=== PATIENT | female | born 1940 | race Caucasian/White ===

== ENCOUNTER 2016-12-22 22:37 | Emergency (ER) | payer MEDICARE, OTHER ==
--- NOTE | ~2016-12-22 | CT71 ---
[facility] A Service of [facility] RADIOLOGY TEXT RESULTS PATIENT: MIKAELA CASTLE LOCATION: [facility] : 40 UNIT #: [id number] AGE: [address]: Amanda Vasquez MD SEX: F ORDER DR: [id number] [facility] [address] [place], [place] [address] [id number] E MR#: [id number] Acc #: [id number] NAME: MIKAELA CASTLE : 1940 SEX: F STUDY DATE/TIME: 12/22/2016 22:29 UNIT: [facility] ROOM: STUDY DESCRIPTION: CT Head Wo Contrast Attending Physician: Amanda Vasquez M.D. Ordering Physician: Amanda Vaqsuez M.D. Primary Care Physician: Nasir Osorio M.D. MEDICAL IMAGING REPORT This report is preliminary unless electronic signature is present EXAM Head CT without contrast, 12/22/2016 HISTORY Headaches and dizziness and generalized weakness beginning today, diabetes and hypertension. This CT exam was performed with one or more of the following radiation dose reduction techniques: automatic exposure control, adjustment of mA and/or kV according to patient size, and iterative reconstruction. FINDINGS Multiple axial images were obtained from the skull base to vertex without intravenous contrast administration. There is generalized enlargement of ventricles and sulci characteristic of atrophy and there is periventricular microvascular white matter ischemic change. 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 Aneurysm clip or coils noted in the medial left temporal region. There is no midline shift. There is no mass or mass effect, hemorrhage or acute infarct. The visualized paranasal sinuses are clear. IMPRESSION No acute intracranial abnormality. Dictated by... Caleb Chaparro M.D. THIS IS AN ELECTRONICALLY VERIFIED REPORT Caleb Chaparro M.D. at 12/23/2016 2:29 PM RENALDO/anibal [facility] A Service of [facility] RADIOLOGY TEXT RESULTS PATIENT: MIKAELA CASTLE LOCATION: [facility] : 40 UNIT #: [id number] AGE: [address]: Amanda Vasquez MD SEX: F ORDER DR: TD: 12/22/2016 23:15 JOB #: [id number] MEDICAL IMAGING REPORT Page 1 of 1 COPY
[2016-12-22 21:54] LABS: URINE SOURCE CLEAN CATCH
[2016-12-22 21:59] LABS: URINE APPEARANCE CLOUDY; URINE BILIRUBIN NEG (NEG); URINE BLOOD TRACE (NEG); URINE COLOR YELLOW; URINE GLUCOSE NEG (NEG); URINE KETONE NEG (NEG); URINE LEUKOCYTE ESTERASE 2+ (NEG); URINE NITRATE NEG (NEG); URINE PH 6.5 (5-8); URINE PROTEIN NEG (NEG); URINE SPECIFIC GRAVITY 1.018 (1.003-1.035); URINE UROBILINOGEN 0.2 MG/DL (NEG)
[2016-12-22 22:01] LABS: CULTURE INDICATED? YES; URINE BACTERIA AUWI 4+ (NEGATIVE); URINE SQUAMOUS EPITHELIAL CELL FEW /[HPF]; UWBCS1 AUWI 50-100 (0-5)
[~2016-12-22 22:37] MED LIST: ACETAMINOPHEN PO; ALAVERT10 MG PO; ALLOPURINOL300 MG PO; ARICEPT PO; ASPIRIN81 M2 PO; CLARITIN10 M2 PO; COUMADIN6 MG PO; CYANOCOBALAM1000 MCG PO; DISCONTINUED MED; FERRO-TIME325 MG PO; GABAPENTIN400 MG PO; GLIMEPIRIDE1 M1 PO; HYDROCHLOROTH12.5 M1 PO; HYDROCHLOROTH12.5 MG PO; IMODIUM2 MG PO; INDERAL LA60 M1 PO; INDERAL LA60 MG PO; K-DUR20 ME2 PO; LEVAQUIN PO; MAGNESIUM400 MG PO; MECLIZINE HCL12.5 MG PO; NEURONTIN PO; NITROGLYGERIN0.4 MG SL; PLAVIX; PLAVIX PO; PRILOSEC20 MG PO; PROTONIX; PROTONIX PO; RISPERDAL0.5 MG PO; RISPERIDONE0.5 MG PO; SIMVASTATIN20 MG PO; ZOCOR20 MG PO; ZYRTEC10 M1
[2016-12-22 22:50] LABS: BASOPHIL% 0.3 % (0-2.5); EOSINOPHIL# 0.1 X10e3 (0-0.7); EOSINOPHIL% 0.4 % (0.0-7.0); HEMATOCRIT 40.3 % (35.0-45.0); HEMOGLOBIN 12.9 gm/dL (12.0-16.0); LYMPHOCYTE# 1.3 X10e3 (1.0-3.5); LYMPHOCYTE% 8.1 % (17.0-45.0); MEAN CORPUSCULAR HEMOGLOBIN 28.2 PG (28-34); MEAN PLATELET VOLUME 8.7 FL (6.5-11.5); MONOCYTE# 0.9 X10e3 (0-1.0); MONOCYTE% 5.9 % (3.0-12.0); NEUTROPHIL# 13.3 X10e3 (1.5-7.1); NEUTROPHIL% 85.3 % (40-75); PLATELET COUNT 243 X10e3 (140-420); RED BLOOD COUNT 4.58 X10e (3.90-5.30); RED CELL DISTRIBUTION WIDTH 15.1 % (11.0-15.5); WHITE BLOOD COUNT 15.6 X10e3 (4.0-10.5)
[2016-12-22 22:51] LABS: DIFF IND YES
[2016-12-22 22:58] LABS: PARTIAL THROMBOPLASTIN TIME 27.3 SECONDS (23.5-31.3); PROTHROMBIN TIME (PATIENT) 10.7 SECONDS (9.6-11.5)
[2016-12-22 23:03] LABS: CALCIUM SERUM 9.4 mg/dL (8.4-10.2); GLOM FILT RATE Estimated 54.7 mL/min (>60); POTASSIUM 3.8 mmol/L (3.5-5.1)
[2016-12-22 23:08] LABS: PLATELET ESTIMATE NORMAL (NORMAL)
== END 2016-12-22 23:40 | disposition home or self-care (01) ==
LOC: CED 22:37
PROVIDERS: Student in an Organized Health Care Education/Training Program
DX: N39.0 Urinary tract infection, site not specified (principal); Z86.73 Personal history of transient ischemic attack (TIA), and cerebral infarction without residual deficits; Z98.890 Other specified postprocedural states; Z79.899 Other long term (current) drug therapy; Z88.0 Allergy status to penicillin
CPT/HCPCS: 36415; 70450; 80048; 81003; 85025; 85610; 85730; 87086; 87088; 87186; 99284

== ENCOUNTER 2017-03-01 23:37 | Emergency (ER) | payer MEDICARE, OTHER ==
--- NOTE | ~2017-03-01 | CT4 ---
[facility] A Service of [facility] RADIOLOGY TEXT RESULTS PATIENT: MIKAELA CASTLE LOCATION: [facility] : 40 UNIT #: [id number] AGE: [address]: Shane Vallecillo MD SEX: F ORDER DR: [id number] [facility] [address] [place], [place] [address] [id number] E MR#: [id number] Acc #: [id number] NAME: MIKAELA CASTLE. : 1940 SEX: F STUDY DATE/TIME: 03/02/2017 2:17 UNIT: [facility] ROOM: STUDY DESCRIPTION: CT Abd and Pelv Wo Cont Attending Physician: Shane Vallecillo M.D. Ordering Physician: Tono Pham M.D. Primary Care Physician: Nasir Osorio M.D. MEDICAL IMAGING REPORT This report is preliminary unless electronic signature is present EXAM CT abdomen and pelvis without contrast INDICATION Generalized abdomen pain since 10:30 last night with constipation for 2 days. COMPARISON None. TECHNIQUE Axial 3 mm images were obtained through the abdomen and pelvis with oral contrast only. This CT examination was performed with one or more of the following radiation dose reduction techniques: automatic exposure control, adjustment of mA and/or kV according to patient size, and iterative reconstruction. FINDINGS The lung bases are clear. The liver has a 15 mm cyst within it and is otherwise normal. The gallbladder has been removed. The spleen, pancreas, adrenal glands and left kidney are normal. 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 There is an upper pole cyst on the right side measuring 2.4 cm in diameter. The aorta is normal in size. There is an IVC filter present. There is no adenopathy. The bowel is normal except for sigmoid diverticula. The bladder, uterus and adnexal regions are normal. The bones show mild degenerative changes. IMPRESSION 1. No acute abnormalities. 2. 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 [facility] A Service of [facility] RADIOLOGY TEXT RESULTS PATIENT: MIKAELA CASTLE [id number] : [birth year] UNIT #: [id number] AGE: [address]: Shane Vallecillo MD SEX: F ORDER DR: 3. Right renal cyst that needs no further follow up. 4. Otherwise, the study is negative. Dictated by... Adelso Saldana M.D. THIS IS AN ELECTRONICALLY VERIFIED REPORT Adelso Saldana M.D. at 03/02/2017 1:32 PM ARVIN/amber TD: 03/02/2017 13:02 JOB #: [id number] MEDICAL IMAGING REPORT Page 1 of 1 COPY
[2017-03-02 01:05] LABS: BASOPHIL# 0.2 X10e3 (0-0.3); EOSINOPHIL# 0.2 X10e3 (0-0.7); EOSINOPHIL% 2.2 % (0.0-7.0); HEMATOCRIT 37.8 % (35.0-45.0); HEMOGLOBIN 12.2 gm/dL (12.0-16.0); LYMPHOCYTE# 1.3 X10e3 (1.0-3.5); LYMPHOCYTE% 12.4 % (17.0-45.0); MEAN CELL VOLUME 85.6 FL (83-96); MEAN CORPUSCULAR HEMOGLOBIN 27.7 PG (28-34); MEAN CORPUSCULAR HGB CONC 32.4 g/dL (30-36); MEAN PLATELET VOLUME 8.5 FL (6.5-11.5); MONOCYTE# 1.2 X10e3 (0-1.0); MONOCYTE% 11.7 % (3.0-12.0); NEUTROPHIL# 7.6 X10e3 (1.5-7.1); NEUTROPHIL% 71.7 % (40-75); PLATELET COUNT 249 X10e3 (140-420); RED BLOOD COUNT 4.41 X10e (3.90-5.30); RED CELL DISTRIBUTION WIDTH 14.8 % (11.0-15.5); WHITE BLOOD COUNT 10.6 X10e3 (4.0-10.5)
[2017-03-02 01:06] LABS: DIFF IND NO; URINE SOURCE CLEAN CATCH
[2017-03-02 01:13] LABS: URINE APPEARANCE TURBID; URINE BILIRUBIN NEG (NEG); URINE BLOOD 2+ (NEG); URINE COLOR YELLOW; URINE GLUCOSE NEG (NEG); URINE KETONE NEG (NEG); URINE LEUKOCYTE ESTERASE 3+ (NEG); URINE NITRATE NEG (NEG); URINE PROTEIN NEG (NEG); URINE SPECIFIC GRAVITY 1.015 (1.003-1.035)
[2017-03-02 01:17] LABS: URBCS1 AUWI 0-2 /[HPF] (0-2); URINE SQUAMOUS EPITHELIAL CELL MANY /[HPF]
[2017-03-02 01:18] LABS: CULTURE INDICATED? YES; URINE BACTERIA AUWI 3+ (NEGATIVE); UWBCS1 AUWI 0-2 (0-5)
[2017-03-02 01:35] LABS: ALBUMIN SERUM 3.9 g/dL (3.5-5.0); ALKALINE PHOSPHATASE 103 U/L (32-92); ALT (SGPT) 10 U/L (10-40); AMYLASE 35 U/L (0-46); AST (SGOT) 13 U/L (10-42); BILIRUBIN,TOTAL 0.5 mg/dL (0.2-2.0); BLOOD UREA NITROGEN 21 mg/dL (9-23); CALCIUM SERUM 9.1 mg/dL (8.4-10.2); CARBON DIOXIDE 25 mmol/L (22-31); CHLORIDE 107 mmol/L (100-111); GLOM FILT RATE Estimated 54.7 mL/min (>60); GLUCOSE FASTING 104 mg/dL (70-110); LIPASE 34 U/L (22-51); POTASSIUM 3.8 mmol/L (3.5-5.1); PROTEIN TOTAL SERUM 7.5 g/dL (6.0-8.3); SODIUM 138 mmol/L (135-145)
[2017-03-02 01:37] LABS: BILIRUBIN, DIRECT <0.1 mg/dL (0.0-0.2); BILIRUBIN,INDIRECT 0.4 mg/dL (0.0-0.9)
== END 2017-03-02 03:07 | disposition home or self-care (01) ==
LOC: CED 23:37
PROVIDERS: Emergency Medicine
DX: R10.9 Unspecified abdominal pain (principal); Z86.73 Personal history of transient ischemic attack (TIA), and cerebral infarction without residual deficits; Z88.0 Allergy status to penicillin
CPT/HCPCS: 36415; 74176; 80048; 80076; 81003; 82150; 83690; 85025; 87086; 96374; 99284; J2405